=== PATIENT | female | born 1990 | race Caucasian/White ===

== ENCOUNTER 2016-11-15 21:05 | Emergency (ER) | payer SELFPAY ==
[2016-11-15] MEDS ORDERED: Adacel (T-DAP) 0.5 ML VIAL ONE (21:39)
[2016-11-15] MEDS ORDERED: Bacitracin Zinc 1 Packet ONE (21:42)
== END 2016-11-15 22:00 | disposition home or self-care (01) ==
LOC: ERS 21:05
DX: O9A.212 Injury, poisoning and certain other consequences of external causes complicating pregnancy, second trimester (principal); T20.17XA Burn of first degree of neck, initial encounter; X08.8XXA Exposure to other specified smoke, fire and flames, initial encounter; Y92.511 Restaurant or cafe as the place of occurrence of the external cause; Z3A.18 18 weeks gestation of pregnancy
CPT/HCPCS: 90471; 90715